=== PATIENT | female | born 1955 | race Caucasian/White ===

== ENCOUNTER 2017-06-18 14:43 | Emergency (ER) | payer OTHER ==
[2017-06-18] MEDS ORDERED: Phenergan 25 MG INJ IM ONE (15:03)
[2017-06-18] MEDS ORDERED: Lactated Ringers 1,000 ML IV ONE ×4 (15:04→17:39)
--- NOTE | 2017-06-18 15:15 | ERPHSYRPT ---
- History of Present Illness Time Seen by Provider: 06/18/17 14:58 Source: patient, family () Patient Subjective Stated Complaint: PT REPORTS SHE BEGAN VOMITING AND HAVING DIARRHEA AT MIDNIGHT-REPORTS MULTPILE EPISODES-ABD PAIN WITH VOMITING Triage Nursing Assessment: PT PINK WARM AND [id number] SOFT-RESP NONLABORED Physician History: CC: vomiting Hx: 61 y/o patient of Dr Arredondo. She awoke at 12 MN with vomiting and diarrhea. She has abd pain worse with vomiting. Chills without fever. She has lots of watery diarrheal stools today. Cramping abd pain has been severe. She had prior hysterectomy and . Not diabetic. Allergies/Adverse Reactions: No Known Drug Allergies Allergy (Unverified 06/18/17 15:08) Home Medications: Estrogens, Conjugated [Premarin] 0.3 mg PO DAILY 06/18/17 [History] Hydrochlorothiazide 25 mg [hydroDIURIL 25 MG] 25 mg PO DAILY 06/18/17 [ History] Levothyroxine Sodium 75 Mcg [Synthroid 75 Mcg] 75 mcg PO DAILY 06/18/17 [ History] Lisinopril 10 mg [Zestril 10 MG] 10 mg PO DAILY 06/18/17 [History] Meloxicam [Meloxicam] 15 mg PO DAILY 06/18/17 [History] Hx Tetanus, Diphtheria Vaccination/Date Given: No Hx Influenza Vaccination/Date Given: Yes (2016) Hx Pneumococcal Vaccination/Date Given: No Immunizations Up to Date: Yes - Review of Systems Constitutional: Chills, Malaise, No Fever Eyes: No Symptoms Ears, Nose, & Throat: No Symptoms Respiratory: No Cough, No Dyspnea Cardiac: No Chest Pain Abdominal/Gastrointestinal: Abdominal Pain, Nausea, Vomiting, Diarrhea Genitourinary Symptoms: No Dysuria Skin: No Rash Neurological: No Headache All Other Systems: Reviewed and Negative - Past Medical History Pertinent Past Medical History: Yes Other Medical History: AORTIC VALVE REGURITATION - Past Surgical History Past Surgical History: Yes Gastrointestinal: Cholecystectomy Female Surgical History: Hysterectomy, Section - Social History Smoking Status: Never smoker Drug Use: none Patient Lives Alone: No - Nursing Vital Signs Nursing Vital Signs: Initial Vital Signs Temperature 99.0 F 02/13/18 15:01 Pulse Rate 94 H 06/18/17 15:01 Respiratory Rate 20 06/18/17 15:01 Blood Pressure 138/65 06/18/17 15:01 O2 Sat by Pulse Oximetry 96 06/18/17 15:01 Pain Scale Pain Intensity 0 - Physical Exam General Appearance: alert Eye Exam: PERRL/EOMI Ears, Nose, Throat Exam: normal ENT inspection, dry mucous membranes Neck Exam: normal inspection, non-tender, supple Respiratory Exam: normal breath sounds Cardiovascular Exam: regular rate/rhythm Gastrointestinal/Abdomen Exam: soft, No tenderness, No distention, No mass, No guarding Back Exam: normal inspection, No CVA tenderness Extremity Exam: normal inspection, normal range of motion, No calf tenderness, No pedal edema Neurologic Exam: alert, oriented x 3, physician assistant surgery II-XII nml as tested, sensation nml, No motor deficits Skin Exam: warm, dry, No rash SpO2 Interpretation: normal SpO2: 96 Oxygen Delivery: Room Air - Course Nursing assessment & vital signs reviewed: Yes - Radiology Exams AAS X-ray Interpretation: Teleradiologist Report, Negative Ordered Tests: Active Orders 24 hr Category Date Time Status Clean Catch Urine Specimen STAT Care 06/18/17 15:03 Active IV Insertion STAT Care 06/18/17 15:03 Active PO Popsicle STAT Care 06/18/17 17:09 Active OBSTR/ACUTE ABDOMEN SERIES Stat Exams 06/18/17 15:03 Completed CBC W DIFF Stat Lab 06/18/17 15:15 Completed CMP Stat Lab 06/18/17 15:15 Completed LIPASE Stat Lab 06/18/17 15:15 Completed Manual Differential NC Stat Lab 06/18/17 15:15 Completed UA W/RFX UR CULTURE Stat Lab 06/18/17 15:03 Completed Medication Summary Generic Name Dose Route Start Last Admin Trade Name Freq PRN Reason Stop Dose Admin Lactated Ringer's 1,000 mls @ 999 mls/hr 06/18/17 17:09 Lactated Ringers IV 06/18/17 18:09 .Q1H1M ONE Discontinued Medications Generic Name Dose Route Start Last Admin Trade Name Freq PRN Reason Stop Dose Admin Lactated Ringer's 1,000 mls @ 999 mls/hr 06/18/17 15:04 06/18/17 15:22 Lactated Ringers IV 06/18/17 16:04 999 mls/hr .Q1H1M ONE Administration Lactated Ringer's Confirm 06/18/17 15:17 Lactated Ringers Administered 06/18/17 15:18 Dose 1,000 mls @ ud IV .STK-MED ONE Ondansetron HCl 4 mg 06/18/17 17:09 Zofran 4 Mg/2 Ml Vial IV 06/18/17 17:10 STAT ONE Promethazine HCl 25 mg 06/18/17 15:03 06/18/17 15:22 Phenergan 25 Mg Inj IM 06/18/17 15:04 25 mg STAT ONE Administration Promethazine HCl Confirm 06/18/17 15:17 Phenergan 25 Mg Inj Administered 06/18/17 15:18 Dose 25 mg .ROUTE .STK-MED ONE Lab/Rad Data: Laboratory Result Diagrams 06/18/17 15:15 06/18/17 15:15 Laboratory Results 06/18/17 06/18/17 06/18/17 Range/Units 15:15 15:15 15:03 WBC 16.9 H (4.0-10.5) K/mm3 RBC 5.42 H (4.1-5.4) M/mm3 Hgb 14.8 (12.0-16.0) gm/dl Hct 45.9 (35-47) % MCV 84.7 (78-100) fl MCH 27.3 (26-32) pg MCHC 32.2 (32-36) g/dl RDW 14.1 H (11.5-14.0) % Plt Count 239 (150-450) K/mm3 MPV 10.0 H (6-9.5) fl Segmented Neutrophils 94 H (36.0-66.0) % Band Neutrophils 1 (0.0-2.0) % Lymphocytes (Manual) 3 L (24-44) % Monocytes (Manual) 2 (0.0-12.0) % Differential Comment NORMAL Platelet Estimate NORMAL (NORMAL) Sodium 138 (136-145) mEq/L Potassium 3.9 (3.5-5.1) mEq/L Chloride 102 (98-107) mEq/L Carbon Dioxide 27.5 (21-32) mEq/L Anion Gap 12.0 (5-15) MEQ/L BUN 21 H (9-20) mg/dL Creatinine 0.87 (0.55-1.30) mg/dl Estimated GFR > 60 ML/MIN Glucose 131 H (70-110) MG/DL Calcium 9.3 (8.5-10.1) mg/dL Total Bilirubin 0.40 (0.2-1.0) mg/dL AST 49 H (15-37) U/L ALT 51 (12-78) U/L Alkaline Phosphatase 63 (46-116) U/L Serum Total Protein 7.7 (6.4-8.2) gm/dL Albumin 3.6 (3.4-5.0) g/dL Lipase 65 L (73-393) U/L Ur Collection Type CLEAN CATCH Urine Color YELLOW (YELLOW) Urine Appearance HAZY (CLEAR) Urine pH 5.0 (5-6) Ur Specific [place] 1.025 (1.005-1.025) Urine Protein NEGATIVE (Negative) Urine Ketones LARGE (NEGATIVE) Urine Blood NEGATIVE (0-5) Henry/ul Urine Nitrite NEGATIVE (NEGATIVE) Urine Bilirubin NEGATIVE (NEGATIVE) Urine Urobilinogen NORMAL (0-1) mg/dL Ur Leukocyte Esterase NEGATIVE (NEGATIVE) Urine Culture Reflexed NO (NO) Urine Glucose NEGATIVE (NEGATIVE) mg/dL Specimen Received 06/18/17 1443 - Progress Progress Note: 06/18/17 17:10 Feeling better after IVF and phenergan. Still some nausea. Abd soft and NT on recheck examination. Will release with zofran and instructions. Counseled pt/family regarding: lab results, diagnosis, need for follow-up, rad results - Departure Time of Disposition: 17:12 Departure Disposition: Home Clinical Impression: Vomiting and diarrhea Condition: Stable Critical Care Time: No Referrals: BORA ARREDONDO [Primary Care Provider] - Instructions: Vomiting -- Adult, Diarrhea and Traveler's Diarrhea -- Adult Additional Instructions: VOMITING AND DIARRHEA 1. Take only small amounts of clear, cool liquids at frequent intervals as tolerated for the next 24-48 hours. Avoid milk products and orange juice. Clear liquids are those liquids which you can see through. 2. Pedialyte and popsicles are recommended clear liquids. 3. If the condition worsens you should contact your family physician or return to the emergency department for re-evaluation. ABDOMINAL PAIN 1. There are several different causes for abdominal pain, some of which may not be able to be identified on initial examination. 2. The important thing to remember is that bodily functions can change in a short period of time. If you notice any of the following symptoms, return to the emergency department or consult your doctor immediately: A. Worsening pain or no improvement in the next 12 hours. B. Increasing, severe abdominal pain C. Blood in stool D. Black stools E. Persistent vomiting F. Fever or chills or other symptoms Rx zofran ODT for nausea/vomiting. Tylenol for discomfort. Return for problems or concerns. Sip frequent amounts of fluids. Prescriptions: Ondansetron ODT 4 MG [Zofran Odt 4 mg] 1 tab PO Q6H PRN PRN #10 tab.rapdis PRN Reason: Nausea/Vomiting
[2017-06-18] MEDS ORDERED: Phenergan 25 MG INJ ONE (15:17)
[2017-06-18 15:24] LABS: Granulocyte Absolute (ANC) 16.03 (1.4-6.9); Hematocrit 45.9 % (35-47); Hemoglobin 14.8 gm/dl (12.0-16.0); Mean Cell Volume 84.7 fl (78-100); Mean Corpuscular Hemoglobin 27.3 pg (26-32); Mean Corpuscular Hgb Concent. 32.2 g/dl (32-36); Platelet Count 239 K/mm3 (150-450); Red Blood Count 5.42 M/mm3 (4.1-5.4); Red Cell Distribution Width 14.1 % (11.5-14.0); White Blood Count 16.9 K/mm3 (4.0-10.5)
[2017-06-18 15:45] LABS: ALBUMIN 3.6 g/dL (3.4-5.0); ALKALINE PHOSPHATASE 63 U/L (46-116); BLOOD UREA NITROGEN 21 mg/dL (9-20); CHLORIDE 102 mEq/L (98-107); Calcium 9.3 mg/dL (8.5-10.1); Carbon Dioxide 27.5 mEq/L (21-32); Creatinine 1 0.87 mg/dl (0.55-1.30); EST GLOMERULAR FILTRATION RATE > 60 ML/MIN; Glucose 131 MG/DL (70-110); LIPASE 65 U/L (73-393); Potassium 3.9 mEq/L (3.5-5.1); SGOT/AST 49 U/L (15-37); SGPT/ALT 51 U/L (12-78); SODIUM 138 mEq/L (136-145); Total Protein 7.7 gm/dL (6.4-8.2)
[2017-06-18 16:19] LABS: BAND 1 % (0.0-2.0); Lymphocytes 3 % (24-44); Monocyte 2 % (0.0-12.0); Neutrophils 94 % (36.0-66.0); Platelet Estimate NORMAL (NORMAL); Total Cells Counted 100
--- NOTE | 2017-06-18 16:22 | XRAY ---
Indication: Vomiting and diarrhea. Comparison: Chest exam September 02, 2015. 2 views of the abdomen nonacute and nonobstructed with previous cholecystectomy. Solid organs unremarkable. Osseous structures intact with mild dextroscoliosis centered at L2. Single frontal chest again demonstrates normal heart, lungs, and bony thorax with a few incidental calcified granulomas. Impression: Negative abdomen. Stable nonacute one view chest.
[2017-06-18 16:39] LABS: Appearance HAZY (CLEAR); Bilirubin NEGATIVE (NEGATIVE); Blood NEGATIVE Ery/ul (0-5); Glucose NEGATIVE (NEGATIVE); Ketones LARGE (NEGATIVE); Leukocyte Esterase NEGATIVE (NEGATIVE); Nitrite NEGATIVE (NEGATIVE); Protein,Urine Dip NEGATIVE (Negative); Specific Gravity 1.025 (1.005-1.025); Urobilinogen NORMAL mg/dL (0-1)
[2017-06-18] MEDS ORDERED: Zofran 4 MG/2 ML VIAL ONE (17:39)
[2017-06-18] MEDS: Zofran 4 MG/2 ML VIAL IV ONE ×2 (17:40→17:41)
[2017-06-18 18:53] VITALS: BP 134/78; PULSE 70; O2SAT 98
== END 2017-06-18 18:52 | disposition home or self-care (01) ==
LOC: ED 14:43
DX: R11.2 Nausea with vomiting, unspecified (principal); R19.7 Diarrhea, unspecified; R10.9 Unspecified abdominal pain; Z79.899 Other long term (current) drug therapy
CPT/HCPCS: 36000; 36415; 74022; 80053; 81002; 83690; 85025; 96360; 96361; 96372; 96374; 99283; 99284; J2405; J2550

== ENCOUNTER 2023-03-19 19:53 | Emergency (ER) | payer MEDICARE, OTHER ==
[2023-03-19 20:04] VITALS: TEMP 98
[2023-03-19 20:08] LABS: Appearance Cloudy (Clear); Bacteria None Seen /HPF (None Seen); Bilirubin Negative (Negative); Blood Small (Negative); Epithelial Cells Few /HPF (None Seen); Glucose, Urine Negative (Negative); Ketones Negative (Negative); Leukocyte Esterase Small (Negative); Nitrite Negative (Negative); Ph 5.5 (4.6-8.0); Protein,Urine Dip Negative (Negative); Specific Gravity 1.025 (1.005-1.030)
[2023-03-19 20:09] LABS: ADD URINE CULTURE? YES (NO)
[2023-03-19] MEDS ORDERED: Sodium Chloride 0.9% 500 ML 500 ML IV ONE (20:22)
[2023-03-19] MEDS ORDERED: ROCEPHIN 1 Gm-D5w 50 ml Bag** 1 G/50 ML IVPB IV ONE (20:22)
[2023-03-19] MEDS ORDERED: TORAdol 30 mg Injection ONE (20:22)
[2023-03-19] MEDS: Sodium Chloride 0.9% 500 ML 500 ML IV ONE (20:24)
[2023-03-19] MEDS: ROCEPHIN 1 Gm-D5w 50 ml Bag** 1 G/50 ML IVPB IV STA (20:25)
[2023-03-19] MEDS: TORAdol 30 mg Injection IV ONE (20:25)
[2023-03-19 20:36] LABS: Absolute Neutrophil Ct (ANC) 5.19 x10^3/uL (1.4-6.9); BASOPHIL % 0.8 % (0.0-0.4); Basophil (Absolute #) 0.06 x10^3/uL (0-0.4); Eosinophil % 1.6 % (0.00-5.0); Eosinophil (Absolute #) 0.13 x10^3/uL (0-0.5); Hematocrit 41.1 % (35-47); Hemoglobin 13.2 g/dL (12.0-16.0); IMMATURE GRAN # 0.02 x10^3u/L (0.00-0.03); IMMATURE GRAN % 0.3 % (0.00-0.4); Lymphocyte (Absolute #) 1.86 x10^3/uL (1.0-4.6); Lymphocytes % 23.5 % (24.0-44.0); Mean Cell Volume 85.8 fL (78-100); Mean Corpuscular Hemoglobin 27.6 pg (26-32); Mean Corpuscular Hgb Concent. 32.1 g/dL (32-36); Mean Platelet Volume 9.9 fL (7.5-11.0); Monocyte (Absolute #) 0.66 x10^3/uL (0.0-1.3); Monocytes % 8.3 % (0.0-12.0); Neutrophil % 65.5 % (36.0-66.0); Platelet Count 243 x10^3/uL (150-450); Red Blood Count 4.79 x10^6/uL (4.1-5.4); Red Cell Distribution Width 13.5 % (11.5-14.0); White Blood Count 7.9 x10^3/uL (4.0-10.5)
[2023-03-19 20:50] LABS: ANION GAP 12.1 MEQ/L (5-15); BILIRUBIN,TOTAL 0.3 mg/dL (0.2-1.3); Calcium 9.6 mg/dL (8.4-10.2); Creatinine 1 0.9 mg/dL (0.52-1.04); EST GLOMERULAR FILTRATION RATE 69.6 ML/MIN; Potassium 3.8 mmol/L (3.5-5.1); Total Protein 6.9 g/dL (6.3-8.2)
[2023-03-19] MEDS ORDERED: Zofran 4 MG/2 ML VIAL ONE (21:27)
[2023-03-19] MEDS ORDERED: MORPHINE SULFATE 2 MG INJ ONE (21:27)
[2023-03-19] MEDS: Zofran 4 MG/2 ML VIAL IV ONE (21:28)
[2023-03-19] MEDS: MORPHINE SULFATE 2 MG INJ IV ONE (21:28)
--- NOTE | 2023-03-19 21:41 | ERPHSYRPT ---
- History of Present Illness Time Seen by Provider: 03/19/23 20:10 Historian: patient Exam Limitations: no limitations Patient Subjective Stated Complaint: pt c/o urinary retention, lt groin/lower abd pain, low back pain on left side, Triage Nursing Assessment: Pt ambulated into ER without diff, spouse at bedside. Pt c/o left lower abd pain, some left lower flank pain as well. Pt has urgency, frequency, dribbling and retention. Pt was seen in [facility] care on 03/05/23 and did not have UTI. Pt was seen by Dr. Valdes on 03/07/23 and oxybutyin started. Pt hasn't noted any improvement. Pt's pain has gotten worse in the last 2 days. Abd soft with active bs x4 quad, tender on palpation. Physician History: Patient 59-year-old female presents emergency department for evaluation of left flank pain. Patient states she has had the symptoms since 03/05/2023. Patient had urine checked" care. Patient's urinalysis was negative. Patient is symptoms got acutely worse this evening. Pain described as an ache that involv es the left chronic down to the left groin area. No trauma no fever. No nausea vomiting or diaphoresis. No history of kidney stones. Symptoms are moderate to severe in intensity. Patient voices no other complaints or concerns at this time. Portions of this note were created with voice recognition technology. There may be grammatical, spelling, punctuation or sound alike errors Timing/Duration: week(s) (14 days ago) Activities at Onset: none Quality: aching Abdominal Pain Onset Location: flank Pain Radiation: groin, other (Pain radiates to left groin) Severity of Pain-Max: severe Severity of Pain-Current: moderate Modifying Factors: Improves With: nothing Associated Symptoms: denies symptoms Previous symptoms: no prior history Allergies/Adverse Reactions: tramadol [From Ultra] Allergy (Severe, Verified 03/19/23 20:21) Shortness of Breath Home Medications: Levothyroxine Sodium 75 Mcg [Synthroid 75 Mcg] 75 mcg PO DAILY 06/18/17 [History] Bupropion HCl Xl 150 mg [Wellbutrin XL 150 MG] 300 mg PO DAILY 03/19/23 [History] Losartan/Hydrochlorothiazide [Losartan-Hctz 50-12.5 mg Tab] 1 tab PO DAILY 03/19/23 [History] PANTOPRAZOLE 40 mg Tablet [Protonix 40MG Tablet] 1 tab PO DAILY 03/19/23 [History] Potassium Chloride 10 meq PO DAILY 03/19/23 [History] Semaglutide [Ozempic] 2.5 mg SQ WEEKLY 03/19/23 [History] Trazodone HCl 150 mg PO HS 03/19/23 [History] Zonisamide 100 mg PO DAILY 03/19/23 [History] oxyBUTYnin chloride [Oxybutynin Chloride] 5 mg PO DAILY 03/19/23 [History] Hx Tetanus, Diphtheria Vaccination/Date Given: Yes Hx Influenza Vaccination/Date Given: Yes Hx Pneumococcal Vaccination/Date Given: Yes Immunizations Up to Date: Yes Travel Risk - International Travel Have you traveled outside of the country in past 3 weeks: No - Coronavirus Screening Are you exhibiting any of the following symptoms?: No Close contact with a COVID-19 positive Pt in past 14-21 Days: No - Vaccine Status Have you recieved a Covid-19 vaccination: Yes Laborer General: Neovacs - Vaccination Dates Date of 2cond Vaccination (if applicable): . - Review of Systems Constitutional: No Symptoms, No Fever, No Chills Eyes: No Symptoms Ears, Nose, & Throat: No Symptoms Respiratory: No Symptoms, No Cough, No Dyspnea Cardiac: No Symptoms, No Chest Pain, No Edema, No Syncope Abdominal/Gastrointestinal: No Symptoms, No Abdominal Pain, No Nausea, No Vomiting, No Diarrhea Genitourinary Symptoms: No Symptoms, No Dysuria Musculoskeletal: No Symptoms, No Back Pain, No Neck Pain Skin: No Symptoms, No Rash Neurological: No Symptoms, No Dizziness, No Focal Weakness, No Sensory Changes Psychological: No Symptoms Endocrine: No Symptoms Hematologic/Lymphatic: No Symptoms Immunological/Allergic: No Symptoms All Other Systems: Reviewed and Negative - Past Medical History Pertinent Past Medical History: Yes Neurological History: Migraines Cardiac History: Other Respiratory History: No Pertinent History Endocrine Medical History: Diabetes Type II, Hypothyroidism, Other Musculoskeletal History: Degenerative Disk Disease, Osteoarthritis GI Medical History: Gallbladder Disease Other Medical History: FATTY LIVER, FIBROSIS OF LIVER, HOSIMOTO, LEEKY VALVES - Past Surgical History Past Surgical History: Yes Gastrointestinal: Cholecystectomy Musculoskeletal: Other Female Surgical History: Hysterectomy, Section, Other Other Surgical History: CARPAL TUNNEL. BREAST BIOPSY - Social History Smoking Status: Never smoker Exposure to second hand smoke: No Drug Use: none Patient Lives Alone: No - Nursing Vital Signs Nursing Vital Signs: Initial Vital Signs Temperature 98.0 F 03/19/23 20:02 Pulse Rate 72 03/19/23 20:02 Respiratory Rate 16 03/19/23 20:02 Blood Pressure 162/108 03/19/23 20:02 O2 Sat by Pulse Oximetry 98 03/19/23 20:02 Pain Scale Pain Intensity 4 - Physical Exam General Appearance: no apparent distress, alert Eye Exam: PERRL/EOMI, eyes nml inspection Ears, Nose, Throat Exam: normal ENT inspection, pharynx normal, moist mucous membranes Neck Exam: normal inspection, non-tender, supple, full range of motion Respiratory Exam: normal breath sounds, lungs clear, airway intact, No res piratory distress Cardiovascular Exam: regular rate/rhythm, normal heart sounds, normal peripheral pulses Gastrointestinal/Abdomen Exam: soft, other (Left flank tenderness.), No tenderness, No mass Back Exam: normal inspection, normal range of motion, No CVA tenderness, No vertebral tenderness Extremity Exam: normal inspection, normal range of motion, pelvis stable Neurologic Exam: alert, oriented x 3, cooperative, normal mood/affect, nml cerebellar function, sensation nml, No motor deficits Skin Exam: normal color, warm, dry Lymphatic Exam: No adenopathy SpO2 Interpretation: normal SpO2: 97 O2 Delivery: Room Air - Course Nursing assessment & vital signs reviewed: Yes - CT Exams Abdomen/Pelvis CT Interpretation: Tele-radiologist Report (3 mm left UVJ stone with minimal hydroureter and mild hydronephrosis. Small fatty epigastric ventral hernia at 3 cm duodenal diverticulum) Ordered Tests: Active Orders 24 hr Category Date Time Status IV Insertion STAT Care 03/19/23 20:14 Active ABDOMEN AND PELVIS W/0 CONTRAS [CT] Stat Exams 03/19/23 20:17 Taken CBC W DIFF Stat Lab 03/19/23 20:34 Completed CMP Stat Lab 03/19/23 20:34 Completed CULTURE,URINE Stat Lab 03/19/23 20:01 Received UA W/RFX UR CULTURE Stat Lab 03/19/23 20:01 Completed Medication Summary Discontinued Medications Generic Name Dose Route Start Last Admin Trade Name Freq PRN Reason Stop Dose Admin Sodium Chloride 500 mls @ 500 mls/hr 03/19/23 20:21 03/19/23 21:24 Sodium Chloride 0.9% 500 Ml IV 03/19/23 21:20 Infused .Q1H ONE Infusion Ceftriaxone Sodium/Dextrose 1 g in 50 mls @ 100 mls/hr 03/19/23 20:21 03/19/23 20:55 Rocephin 1 Gm-D5w 50 Ml Bag IV 03/19/23 20:50 Infused STAT STA Infusion Ceftriaxone Sodium/Dextrose Confirm 03/19/23 20:22 Rocephin 1 Gm-D5w 50 Ml Bag Administered 03/19/23 20:23 Dose 1 g in 50 mls @ ud IV .STK-MED ONE Sodium Chloride Confirm 03/19/23 20:22 Sodium Chloride 0.9% 500 Ml Administered 03/19/23 20:23 Dose 500 mls @ ud IV .STK-MED ONE Ketorolac Tromethamine 30 mg 03/19/23 20:21 03/19/23 20:25 Ketorolac Tromethamine 30 Mg/Ml Inj IV 03/19/23 20:22 30 mg STAT ONE Administration Ketorolac Tromethamine Confirm 03/19/23 20:22 Ketorolac Tromethamine 30 Mg/Ml Inj Administered 03/19/23 20:23 Dose 30 mg .ROUTE .STK-MED ONE Morphine Sulfate 2 mg 03/19/23 21:24 03/19/23 21:28 Morphine Sulfate 2 Mg/Ml Inj IV 03/19/23 21:25 2 mg STAT ONE Administration Morphine Sulfate Confirm 03/19/23 21:27 Morphine Sulfate 2 Mg/Ml Inj Administered 03/19/23 21:28 Dose 2 mg .ROUTE .STK-MED ONE Ondansetron HCl 4 mg 03/19/23 21:26 03/19/23 21:28 Ondansetron Hcl 4 Mg/2 Ml Vial IV 03/19/23 21:27 4 mg STAT ONE Administration Ondansetron HCl Confirm 03/19/23 21:27 Ondansetron Hcl 4 Mg/2 Ml Vial Administered 03/19/23 21:28 Dose 4 mg .ROUTE .STK-MED ONE Lab/Rad Data: Laboratory Result Diagrams 03/19/23 20:34 03/19/23 20:34 Laboratory Results 03/19/23 03/19/23 03/19/23 Range/Units 20:34 20:34 20:01 WBC 7.9 (4.0-10.5) x10^3/uL RBC 4.79 (4.1-5.4) x10^6/uL Hgb 13.2 (12.0-16.0) g/dL Hct 41.1 (35-47) % MCV 85.8 (78-100) fL MCH 27.6 (26-32) pg MCHC 32.1 (32-36) g/dL RDW 13.5 (11.5-14.0) % Plt Count 243 (150-450) x10^3/uL MPV 9.9 (7.5-11.0) fL Gran % 65.5 (36.0-66.0) % Immature Gran % (Auto) 0.3 (0.00-0.4) % Nucleat RBC Rel Count 0.0 (0.00-0.1) % Eos # (Auto) 0.13 (0-0.5) x10^3/uL Immature Gran # (Auto) 0.02 (0.00-0.03) x10^3u/L Absolute Lymphs (auto) 1.86 (1.0-4.6) x10^3/uL Absolute Monos (auto) 0.66 (0.0-1.3) x10^3/uL Absolute Nucleated RBC 0.00 (0.00-0.01) x10^3u/L Lymphocytes % 23.5 L (24.0-44.0) % Monocytes % 8.3 (0.0-12.0) % Eosinophils % 1.6 (0.00-5.0) % Basophils % 0.8 (0.0-0.4) % Absolute Granulocytes 5.19 (1.4-6.9) x10^3/uL Basophils # 0.06 (0-0.4) x10^3/uL Sodium 138 (137-145) mmol/L Potassium 3.8 (3.5-5.1) mmol/L Chloride 105 (98-107) mmol/L Carbon Dioxide 24 (22-30) mmol/L Anion Gap 12.1 (5-15) MEQ/L BUN 14 (7-17) mg/dL Creatinine 0.90 (0.52-1.04) mg/dL Estimated GFR 69.6 ML/MIN Glucose 91 (74-106) mg/dL Calcium 9.6 (8.4-10.2) mg/dL Total Bilirubin 0.30 (0.2-1.3) mg/dL AST 19 (14-36) U/L ALT 15 (0-35) U/L Alkaline Phosphatase 75 (38-126) U/L Serum Total Protein 6.9 (6.3-8.2) g/dL Albumin 4.0 (3.5-5.0) g/dL Urine Color Yellow (Yellow) Urine Appearance Cloudy A (Clear) Urine pH 5.5 (4.6-8.0) Ur Specific [place] 1.025 (1.005-1.030) Urine Protein Negative (Negative) Urine Glucose (UA) Negative (Negative) mg/dL Urine Ketones Negative (Negative) Urine Blood Small A (Negative) Urine Nitrite Negative (Negative) Urine Bilirubin Negative (Negative) Urine Urobilinogen 1.0 A (0.2) mg/dL Ur Leukocyte Esterase Small A (Negative) U Hyaline Cast (Auto) 3-5 A (0-2) /LPF Urine Microscopic RBC 6-10 A (0-5) /HPF Urine Microscopic WBC 11-20 A (0-5) /HPF Ur Epithelial Cells Few (None Seen) /HPF Urine Bacteria None Seen (None Seen) /HPF Urine Culture Reflexed YES (NO) - Progress Progress: improved Progress Note: Case discussed with Dr. Dao urologist at who accepts transfer at 12:27 AM 03/20/23 00:27 Patient is 67-year-old female presents to our ED for evaluation of urinary symptomology and left flank pain. Physical exam reveals mild left flank tenderness. CT abdomen pelvis reveals a obstructing 3 mm left UVJ with hydro ureter and hydronephrosis. Urinalysis reveals a pyuria. In light of the findings along with patient's clinical symptomology patient likely experiencing a urinary tract infection/infected stone. Patient received a dose of Rocephin in our ED. Patient's pain was managed with a dose of Toradol followed by morphine and Zofran. CBC CMP essentially nonremarkable. Patient will be transferred to for further evaluation and treatment. Plan of care discussed with patient. She agrees to transfer. She voices no other complaints or concerns at this time. Portions of this note were created with voice recognition technology. There may be grammatical, spelling, punctuation or sound alike errors Complexity problem addressed is moderate acute No critical care time Complexity of data reviewed and analyzed is extensive. Test ordered test reviewed. Results analyzed and correlated clinically with history and physical examination. Management discussed with Dr. Dao urologist who accepts transfer to . Risk of complication and or risk of morbidity/mortality of patient management is high. Patient requires hospitalization/higher level of care for further evaluation and treatment. Vital stable. Time spent to transfer patient is approximately 20 minutes. Plan of care established for shared decision making. Portions of this note were created with voice recognition technology. There may be grammatical, spelling, punctuation or sound alike errors 03/20/23 01:11 Counseled pt/family regarding: lab results, diagnosis, rad results - Departure Departure Disposition: Transfer Clinical Impression: Left ureterolithiasis, Hydroureter, Hydronephrosis, Epigastric ventral hernia, Duodenal diverticulum Condition: Stable Critical Care Time: No Referrals: ALLY VALDES MD [Primary Care Provider] - Follow up/PCP as directed
[2023-03-20] MEDS ORDERED: MORPHINE SULFATE 2 MG INJ ONE ×3 (01:22→08:33)
[2023-03-20] MEDS: MORPHINE SULFATE 2 MG INJ IV ONE ×3 (01:22→08:41)
[2023-03-20 07:03] VITALS: BP 156/61; PULSE 70; RESP 16; O2SAT 99
[2023-03-20] MEDS ORDERED: Zofran 4 MG/2 ML VIAL ONE (08:33)
[2023-03-20] MEDS: Zofran 4 MG/2 ML VIAL IV ONE (08:41)
--- NOTE | 2023-03-20 08:41 | XRAY ---
Indication: Flank pain. Painful urination. Multiple contiguous axial images obtained through the abdomen and pelvis without contrast. Comparison: None Lung bases clear. Heart not enlarged. Stomach is distended with food/fluid. Noncontrasted stomach and bowel loops appear nonobstructed. Appendix not visualized. No free fluid/air. 3 mm left UVJ calculus. More proximal left ureter is slightly prominent along with mild hydronephrosis consistent with partial obstructive uropathy. Previous cholecystectomy. No free fluid/air. Remaining liver, pancreas, spleen, adrenal glands, kidneys, ureters, and bladder are unremarkable for noncontrast exam. Minimal scattered aortic calcifications including origin left main renal artery. No AAA. Osseous structures intact with mild dextroscoliosis centered at L2. Impression: 1. 3 mm left UVJ calculus producing partial obstruction. 2. Incidental dextroscoliosis. 3. Remaining CT abdomen/pelvis without contrast exam is negative.
== END 2023-03-20 08:45 | disposition short-term general hospital (02) ==
LOC: ED 19:53
DX: N13.2 Hydronephrosis with renal and ureteral calculous obstruction (principal); N13.4 Hydroureter; K43.9 Ventral hernia without obstruction or gangrene; K57.10 Diverticulosis of small intestine without perforation or abscess without bleeding; R10.9 Unspecified abdominal pain; N39.0 Urinary tract infection, site not specified; E11.9 Type 2 diabetes mellitus without complications; Z79.85 Long-term (current) use of injectable non-insulin antidiabetic drugs; Z79.899 Other long term (current) drug therapy
CPT/HCPCS: 36000; 36415; 74176; 80053; 81001; 85025; 87086; 96374; 96375; 96376; 99285; J0696; J1885; J2270; J2405